=== PATIENT | male | born 1960 | race Caucasian/White ===

== ENCOUNTER → 2017-12-22 | Outpatient (CLI) | payer OTHER | DX: R91.1 Solitary pulmonary nodule (principal); N20.0 Calculus of kidney; Z95.2 Presence of prosthetic heart valve | CPT/HCPCS: Q9967 ==

== ENCOUNTER → 2017-12-25 | Outpatient (CLI) | payer OTHER ==
[~2017-12-25] MED LIST: GADOBUTROL 10 ML VIAL IVP ONE
== END ==
LOC: FIMAGING 06:31
PROVIDERS: ATTEND Surgery
DX: N28.1 Cyst of kidney, acquired (principal)
CPT/HCPCS: 82565-PO; A9585

== ENCOUNTER → 2018-06-28 | Outpatient (CLI) | payer OTHER | LOC: FIMAGING 13:30 | PROVIDERS: ATTEND Family Medicine | DX: N20.0 Calculus of kidney (principal) ==